=== PATIENT | female | born 1945 | race Two or more races ===

== ENCOUNTER → 2016-06-30 | Outpatient (CLI) | payer OTHER ==
--- NOTE | 2016-06-30 09:58 | MA ---
Screening Digital Mammogram With iCAD Indication: Routine screening. Technique: Standard cephalocaudal and mediolateral oblique projections are obtained. This examinati on is processed by the iCAD computer-aided detection system. Comparison: June 2015, June 2014, May 2013, and March 2011 Breast density: Type B. Findings: CAD was reviewed. A focal asymmetry with minimal architectural distortion has developed in the upper outer left breast. The right mammograms are negative. Impression: Focal asymmetry with minimal architectural distortion in the upper outer left breast. BI-RADS 0: Needs additional imaging evaluation. Recommendation: Spot compressed CC and MLO and true lateral views left breast. If a focal asymmetry or distortion persists, proceed with left breast ultrasound at the discretion of the interpreting rad iologist. [facility] will send a result letter to the patient. Negative mammography should not preclude additional workup of a clinically suspicious finding. The patient's information is entered into a reminder system with a target due date for her next mammo gram.
== END ==
LOC: BRMIMAGING 07:50
DX: Z12.31 Encounter for screening mammogram for malignant neoplasm of breast (principal)
CPT/HCPCS: G0202

== ENCOUNTER → 2016-07-29 | Outpatient (CLI) | payer OTHER | LOC: BRMIMAGING 09:34 | DX: R92.8 Other abnormal and inconclusive findings on diagnostic imaging of breast (principal) | CPT/HCPCS: 76641; G0206 ==

== ENCOUNTER → 2017-04-06 | Outpatient (CLI) | payer OTHER | LOC: BRMIMAGING 08:22 | DX: Z12.31 Encounter for screening mammogram for malignant neoplasm of breast (principal); Z80.3 Family history of malignant neoplasm of breast | CPT/HCPCS: G0206 ==

== ENCOUNTER → 2017-04-20 | Outpatient (CLI) | payer OTHER | LOC: BRMIMAGING 11:31 | DX: E04.9 Nontoxic goiter, unspecified (principal) ==

== ENCOUNTER → 2017-08-31 | Outpatient (CLI) | payer OTHER | LOC: BRMIMAGING 07:51 | DX: Z12.31 Encounter for screening mammogram for malignant neoplasm of breast (principal) ==